=== PATIENT | female | born 1970 ===

== ENCOUNTER → 2022-09-27 | Outpatient (CLI) | payer BC ==
[~2022-09-27] MED LIST: HYDACE5 PO; RANI150 PO
[2022-09-28 15:12] LABS: HPV 16 Negative (Negative); HPV 18 Negative (Negative); HPV OTHER HR TYPES Negative (Negative)
== END | disposition home or self-care (01) ==
LOC: LAB 16:34 → LAB SHORT 16:34
PROVIDERS: Family Medicine
DX: Z12.4 Encounter for screening for malignant neoplasm of cervix (principal)
CPT/HCPCS: 87624; G0145

== ENCOUNTER → 2023-08-08 | Outpatient (CLI) | payer BC | LOC: LAB SHORT 10:00 → LAB 10:00 | DX: R30.0 Dysuria (principal) | CPT/HCPCS: 87077; 87086; 87186 ==